=== PATIENT | female | born 1950 | race Two or more races ===

== ENCOUNTER → 2017-04-14 | Outpatient (CLI) | payer BC | END | disposition home or self-care (01) | LOC: HKI 14:30 | DX: M17.12 Unilateral primary osteoarthritis, left knee (principal) | CPT/HCPCS: Z7500 ==

== ENCOUNTER → 2017-07-04 | Outpatient (CLI) | payer BC | END | disposition home or self-care (01) | LOC: HKI 11:14 | DX: Z01.818 Encounter for other preprocedural examination (principal) | CPT/HCPCS: Z7500 ==

== ENCOUNTER 2017-07-06 07:45 | Inpatient (IN) | payer BC ==
[2017-07-06] MEDS: LACTATED RINGER'S 1,000 ML IV* (07:00)
[~2017-07-06 07:45] MED LIST: ACETAMINOPHEN 1000MG/100ML IV 100 ML IVPB; CEFAZOLIN 2 GM/50 ML (PMX) 50 ML IVPB
[2017-07-06] MEDS: ONDANSETRON 4 MG INJ IV ×3 (08:51→18:05)
[2017-07-06] MEDS: oxyCODONE (CR) 10 MG TAB [oxyCONTIN] PO (09:00)
[2017-07-06] MEDS: LANSOPRAZOLE 30 MG CAP PO (09:00)
[2017-07-06] MEDS: CELECOXIB 200 MG CAP PO (09:00)
[2017-07-06] MEDS: DEXAMETHASONE 4 MG/ML 1 ML INJ IV (09:01)
[2017-07-06] MEDS ORDERED: morphine SULFATE/PF (10 MG/10 ML) INJ (10:12)
[2017-07-06] MEDS ORDERED: PROPOFOL 20 ML (10:12)
[2017-07-06] MEDS ORDERED: MIDAZOLAM 1 MG/ML 2 ML INJ (10:12)
[2017-07-06] MEDS ORDERED: ROCURONIUM 50 MG INJ (10:12)
[2017-07-06] MEDS ORDERED: BUPIVACAINE 0.75%/DEXT (SPINAL) 2 ML INJ (10:16)
[2017-07-06] MEDS: TRANEXAMIC ACID 1,000 MG in NS 100 ML PRE-OP X1 IVPB (10:45)
[2017-07-06] MEDS ORDERED: CEFAZOLIN 1 GM INJ (10:51)
[2017-07-06] MEDS ORDERED: DEXAMETHASONE 4 MG/ML 1 ML INJ (10:51)
[2017-07-06] MEDS ORDERED: SUGAMMADEX SODIUM 200 MG/2 ML VIAL IV (10:51)
[2017-07-06] MEDS ORDERED: METOCLOPRAMIDE 10 MG INJ (10:51)
[2017-07-06] MEDS ORDERED: ONDANSETRON 4 MG INJ (10:51)
[2017-07-06] MEDS ORDERED: KETOROLAC 30 MG INJ (10:51)
[2017-07-06] MEDS: POLYMYXIN B 500000 UNIT INJ (11:00)
[2017-07-06] MEDS: BACITRACIN 50000 UNITS INJ (11:00)
[2017-07-06] MEDS ORDERED: PHENYLephrine (100 MCG/ML) 5ML SYG (11:02)
[2017-07-06] MEDS ORDERED: KETOROLAC 30 MG INJ IV (12:00)
[2017-07-06] MEDS ORDERED: ONDANSETRON 4 MG INJ IV ×2 (12:00)
[2017-07-06] MEDS ORDERED: OXYCODONE/ACETAMINOPHEN (5/325) TAB PO ×2 (12:00)
[2017-07-06] MEDS ORDERED: HYDROmorphONE (0.2 MG/ML) 10ML SYG IV ×3 (12:00)
[2017-07-06] MEDS ORDERED: MEPERIDINE 25 MG INJ IV (12:00)
[2017-07-06] MEDS: TRANEXAMIC ACID 1,000 MG in NS 100 ML INTRA-OP X1 IVPB ×2 (12:00)
[2017-07-06] MEDS ORDERED: HYDROmorphONE 0.5 MG/0.5 ML SYG IV ×2 (12:00)
[2017-07-06] MEDS ORDERED: LABETALOL HCL 20MG INJ IV (12:00)
[2017-07-06] MEDS ORDERED: morphine 2 MG INJ IV ×2 (12:00)
[2017-07-06] MEDS ORDERED: EPHEDrine SULFATE 50 MG/5 ML SYG IV (12:00)
[2017-07-06] MEDS ORDERED: ACETAMINOPHEN 500 MG TAB PO (12:00)
[2017-07-06] MEDS ORDERED: NALOXONE (0.4 MG/ML) INJ IV ×2 (12:00→13:00)
[2017-07-06] MEDS ORDERED: ALBUMIN HUMAN 5% 250 ML IV (12:00)
[2017-07-06] MEDS ORDERED: DIPHENHYDRAMINE 50 MG INJ IV ×2 (12:00)
[2017-07-06] MEDS ORDERED: NALBUPHINE HCL (10 MG/1 ML) INJ IV (12:00)
[2017-07-06] MEDS ORDERED: FENTAnyl 50 MCG/ML VIAL IV ×3 (12:00)
[2017-07-06] MEDS ORDERED: METOCLOPRAMIDE 10 MG INJ IV (12:00)
[2017-07-06] MEDS: ROPIVACAINE 0.2% 60 ML, morphine SULFATE (PF) 4 MG, CLONIDINE 100 MCG, KETOROLAC 30 MG,... INJ (12:38)
[2017-07-06] MEDS ORDERED: ROPIVACAINE 0.5 % 30 ML VIAL (12:38)
[2017-07-06] MEDS ORDERED: BETHANECHOL 25 MG TAB PO (13:00)
[2017-07-06] MEDS ORDERED: SENNA/DOCUSATE NA (8.6MG/50MG) TAB PO (13:00)
[2017-07-06] MEDS ORDERED: NA PHOSPHATE/BIPHOS 133 ML ENEMA PR (13:00)
[2017-07-06] MEDS ORDERED: BISACODYL 10 MG SUPP PR (13:00)
[2017-07-06] MEDS ORDERED: MAGNESIUM HYDROXIDE 30ML CUP PO (13:00)
[2017-07-06] MEDS: CEFAZOLIN 1 GM/50 ML (PMX) 50 ML IVPB ×2 (13:29→21:22)
[2017-07-06] MEDS: DOCUSATE SODIUM 100 MG CAP PO (13:30)
[2017-07-06] MEDS: ASPIRIN (EC) 325 MG TAB PO ×2 (13:30→21:22)
[2017-07-06] MEDS: SOD CHLORIDE 0.9% 1,000 ML IV (14:49)
[2017-07-06] MEDS: GABAPENTIN 100 MG CAP PO (21:22)
[2017-07-07] MEDS: SOD CHLORIDE 0.9% 1,000 ML IV ×2 (01:30→13:58)
[2017-07-07] MEDS: ONDANSETRON 4 MG INJ IV ×2 (01:30→06:05)
[2017-07-07 05:55] LABS: ADD MAN DIFF? NO
[2017-07-07 06:00] LABS: WHITE BLOOD COUNT 8.3 10^3/ul (4.8-10.8)
[2017-07-07 06:00] LABS: BASOPHILS % 0.1 % (0.0-2.0); HEMATOCRIT 35.3 % (37.0-47.0); HEMOGLOBIN 11.4 g/dl (12.0-16.0); LYMPHOCYTES % 12.2 % (15.0-51.0); MEAN CORPUSCULAR HEMOGLOBIN 29.1 pg (29.0-33.0); MEAN CORPUSCULAR HGB CONC 32.3 g/dl (32.0-37.0); MEAN CORPUSCULAR VOLUME 90.1 fl (82.0-101.0); MONOCYTE # 0.8 10^3/ul (0.3-0.9); MONOCYTES % 10.2 % (0.0-11.0); NEUTROPHIL # 6.4 10^3/ul (1.6-7.5); NEUTROPHILS % 77.3 % (39.0-77.0); PLATELET COUNT 178 10^3/UL (140-415); RED BLOOD COUNT 3.92 10^6/ul (4.20-5.40); RED CELL DISTRIBUTION WIDTH 13.5 % (11.5-14.5)
[2017-07-07] MEDS: CEFAZOLIN 1 GM/50 ML (PMX) 50 ML IVPB (06:05)
[2017-07-07 06:47] LABS: ANION GAP 13 (8-16); BLOOD UREA NITROGEN 14 mg/dl (7-20); CALCIUM 8.4 mg/dl (8.4-10.2); CARBON DIOXIDE 25 mmol/L (21-31); CHLORIDE 108 mmol/L (97-110); CREATININE 0.59 mg/dl (0.44-1.00); GLUCOSE 108 mg/dl (70-220); POTASSIUM 4.4 mmol/L (3.5-5.1); SODIUM 142 mmol/L (135-144)
[2017-07-07] MEDS: ASPIRIN (EC) 325 MG TAB PO ×2 (09:22→21:41)
[2017-07-07] MEDS: CELECOXIB 200 MG CAP PO ×2 (09:22→21:20)
[2017-07-07] MEDS: HYDROCODONE/APAP (5/325) TAB PO (09:22)
[2017-07-07] MEDS: GABAPENTIN 100 MG CAP PO ×2 (09:23→21:20)
[2017-07-07] MEDS: DOCUSATE SODIUM 100 MG CAP PO ×2 (09:23→21:20)
[2017-07-07] MEDS: FERROUS FUMARATE (SR) TAB PO ×2 (09:23→21:20)
[2017-07-07] MEDS ORDERED: DIPHENHYDRAMINE 50 MG INJ IM (10:33)
[2017-07-07] MEDS ORDERED: oxyCODONE 5 MG TAB PO (10:33)
[2017-07-07 10:59] LABS: ADD UMIC YES; UR ASCORBIC ACID NEGATIVE (NEGATIVE); UR BACTERIA FEW /HPF (NONE SEEN); UR BILIRUBIN (Dip) NEGATIVE (NEGATIVE); UR BLOOD (Dip) 2+ mg/dL (NEGATIVE); UR CLARITY CLEAR (CLEAR); UR COLOR STRAW (YELLOW); UR GLUCOSE (Dip) NEGATIVE (NEGATIVE); UR KETONES (Dip) NEGATIVE (NEGATIVE); UR LEUKOCYTE ESTERASE (Dip) NEGATIVE Leu/ul (NEGATIVE); UR NITRITE (Dip) NEGATIVE (NEGATIVE); UR RBC 26 /HPF (0-5); UR SPECIFIC GRAVITY (Dip) 1.005 (1.003-1.030); UR TOTAL PROTEIN (Dip) NEGATIVE (NEGATIVE); UR UROBILINOGEN (Dip) NEGATIVE (NEGATIVE); UR WBC 1 /HPF (0-5)
[2017-07-07] MEDS: oxyCODONE 5 MG TAB PO ×3 (12:47→19:37)
[2017-07-08] MEDS: KETOROLAC 15 MG INJ IV ×3 (00:23→13:19)
[2017-07-08] MEDS: SOD CHLORIDE 0.9% 1,000 ML IV ×2 (02:28→14:58)
[2017-07-08 05:23] LABS: ADD MAN DIFF? NO
[2017-07-08 05:24] LABS: WHITE BLOOD COUNT 4.8 10^3/ul (4.8-10.8)
[2017-07-08 05:24] LABS: BASOPHILS % 0.2 % (0.0-2.0); EOSINOPHILS % 0.6 % (0.0-7.0); HEMATOCRIT 31.9 % (37.0-47.0); HEMOGLOBIN 10.4 g/dl (12.0-16.0); LYMPHOCYTES # 1.4 10^3/ul (0.8-2.9); LYMPHOCYTES % 29.5 % (15.0-51.0); MEAN CORPUSCULAR HEMOGLOBIN 29.4 pg (29.0-33.0); MEAN CORPUSCULAR HGB CONC 32.6 g/dl (32.0-37.0); MEAN CORPUSCULAR VOLUME 90.1 fl (82.0-101.0); MEAN PLATELET VOLUME 10.8 fl (7.4-10.4); MONOCYTE # 0.6 10^3/ul (0.3-0.9); MONOCYTES % 12.9 % (0.0-11.0); NEUTROPHIL # 2.7 10^3/ul (1.6-7.5); NEUTROPHILS % 56.6 % (39.0-77.0); PLATELET COUNT 142 10^3/UL (140-415); RED BLOOD COUNT 3.54 10^6/ul (4.20-5.40); RED CELL DISTRIBUTION WIDTH 13.7 % (11.5-14.5)
[2017-07-08 05:48] LABS: ANION GAP 10 (8-16); BLOOD UREA NITROGEN 12 mg/dl (7-20); CALCIUM 8.2 mg/dl (8.4-10.2); CARBON DIOXIDE 29 mmol/L (21-31); CHLORIDE 107 mmol/L (97-110); CREATININE 0.55 mg/dl (0.44-1.00); GLUCOSE 101 mg/dl (70-220); POTASSIUM 3.5 mmol/L (3.5-5.1); SODIUM 142 mmol/L (135-144)
[2017-07-08] MEDS: PANTOPRAZOLE (EC) 40 MG TAB PO (06:06)
[2017-07-08] MEDS: oxyCODONE 5 MG TAB PO ×2 (06:06→10:00)
[2017-07-08] MEDS: FERROUS FUMARATE (SR) TAB PO (10:00)
[2017-07-08] MEDS: CELECOXIB 200 MG CAP PO (10:00)
[2017-07-08] MEDS: ASPIRIN (EC) 325 MG TAB PO (10:00)
[2017-07-08] MEDS: GABAPENTIN 100 MG CAP PO (10:00)
[2017-07-08] MEDS: DOCUSATE SODIUM 100 MG CAP PO (10:00)
[2017-07-08] MEDS ORDERED: HYDROCODONE/APAP (5/325) TAB PO (13:00)
[2017-07-08] MEDS ORDERED: traMADol 50 MG TAB NGT (13:00)
[2017-07-08] MEDS: HYDROCODONE/APAP (5/325) TAB PO ×2 (13:20→19:27)
== END 2017-07-08 19:30 | disposition home health service (06) | DRG 470 ==
LOC: REC 07:45 → MS1 14:04
PROC: 0SRD069 Replacement of Left Knee Joint with Oxidized Zirconium on Polyethylene Synthetic Substitute, Cemented, Open Approach (ICD-10-PCS; principal; 2017-07-06 10:30)
DX: M17.12 Unilateral primary osteoarthritis, left knee (principal); E78.5 Hyperlipidemia, unspecified; E66.9 Obesity, unspecified
CPT/HCPCS: 73560; 80048; 81001; 85025; 86850; 86900; 86901; 87086; 88304; 88311; 97110; 97116; 97162; 97165; 97530

== ENCOUNTER → 2017-07-19 | Outpatient (CLI) | payer BC | END | disposition home or self-care (01) | LOC: HKI 13:47 | DX: Z09 Encounter for follow-up examination after completed treatment for conditions other than malignant neoplasm (principal); M25.562 Pain in left knee; Z96.652 Presence of left artificial knee joint; Z79.82 Long term (current) use of aspirin | CPT/HCPCS: 73562; 73562-LT ==